=== PATIENT | female | born 1955 | race Caucasian/White ===

== ENCOUNTER → 2016-12-19 | Outpatient (CLI) | payer BC | LOC: MC.RAD 09:40 | DX: Z12.31 Encounter for screening mammogram for malignant neoplasm of breast (principal) ==

== ENCOUNTER → 2018-03-10 | Outpatient (CLI) | payer BC | LOC: MC.RAD 10:41 | DX: Z12.31 Encounter for screening mammogram for malignant neoplasm of breast (principal) ==

== ENCOUNTER 2019-09-24 11:00 | Outpatient (RCR) | payer BC | END 2019-10-01 11:31 | disposition home or self-care (01) | LOC: WSOT 11:00 | DX: M65.332 Trigger finger, left middle finger (principal) ==

== ENCOUNTER → 2020-01-04 | Outpatient (CLI) | payer BC | LOC: MC.RAD 10:16 | DX: Z12.31 Encounter for screening mammogram for malignant neoplasm of breast (principal) ==

== ENCOUNTER → 2024-02-12 | Outpatient (CLI) | payer MEDICARE | LOC: MC.RAD 11:15 | DX: Z12.31 Encounter for screening mammogram for malignant neoplasm of breast (principal) ==

== ENCOUNTER 2024-03-29 13:02 | Outpatient (RCR) | payer MEDICARE | END 2024-04-03 | disposition home or self-care (01) | LOC: WSPT | DX: R20.2 Paresthesia of skin (principal) ==